=== PATIENT | male | born 1965 | race Caucasian/White ===

== ENCOUNTER → 2020-02-21 | Outpatient (REF) | payer OTHER ==
[2020-02-21 19:32] LABS: APPEARANCE, URINE CLEAR (CLEAR); BACTERIA, URINE AUTO NEGATIVE (NEGATIVE); BILIRUBIN, URINE AUTO NEGATIVE (NEGATIVE); BLOOD, URINE BLOOD 1+ (NEGATIVE); COLOR, URINE YELLOW (YELLOW); GLUCOSE, URINE (UA) AUTO NEGATIVE (NEGATIVE); KETONE, URINE AUTO NEGATIVE (NEGATIVE); LEUKOCYTE ESTERASE, URINE AUTO NEGATIVE (NEGATIVE); NITRITE, URINE AUTO NEGATIVE (NEGATIVE); PROTEIN, URINE AUTO NEGATIVE (NEGATIVE); RBC, URINE AUTO 1 /HPF (0-3); SPECIFIC GRAVITY URINE AUTO 1.018 (1.002-1.035); SQUAMOUS EPITHELIAL CELL UR AU 0 /HPF (0-6); UROBILINOGEN, URINE AUTO 0.2 mg/dL (0.0-2.0); WBC, URINE AUTO 0 /HPF (0-3)
== END ==
LOC: M SMT 17:23
PROVIDERS: ATTEND Nurse Practitioner Family
DX: R31.29 Other microscopic hematuria (principal)

== ENCOUNTER → 2020-03-19 | Outpatient (CLI) | payer OTHER ==
[~2020-03-19] MED LIST: PROHANCE 279.3MG/ML 15ML VIAL As Ordered ONE; PROHANCE 279.3MG/ML 5ML VIAL As Ordered ONE
--- NOTE | 2020-03-19 20:15 | REPVR ---
PROCEDURE INFORMATION: Exam: MR Head Without and With Contrast; Internal Auditory Canals Exam date and time: 03/19/2020 8:52 AM Age: 55 years old Clinical indication: Other: Hearing loss, left side; Additional info: [facility] TECHNIQUE: Imaging protocol: MR of the head without and with intravenous contrast. Exam focused on the internal auditory canals. 3D rendering: MIP and/or 3D reconstructed images were created by the technologist. Contrast material: PROHANCE; Contrast volume: 20 ml; Contrast route: INTRAVENOUS (IV); COMPARISON: No relevant prior studies available. FINDINGS: Brain: There is a small focus of hyperintensity on diffusion involving the central medulla. There is no abnormal signal intensity on the remaining sequences. Artifact is suggested, although a subacute lacunar infarct cannot be excluded. No restricted diffusion within the remaining brain to suggest an acute infarct. No abnormally enhancing intracranial mass is identified. No cerebral edema. No significant cerebral white matter disease. Ventricles: No ventriculomegaly. Sinuses: Minimal mucosal thickening of the left maxillary sinus and scattered ethmoid air cells. A small air-fluid level is identified within the left sphenoid sinus. Mastoid air cells: Mild effusions within the bilateral mastoid air cells. Internal auditory canals: Anterior inferior cerebellar artery loops are identified within the bilateral internal auditory canals. There is no mass effect or enhancing lesion involving the bilateral internal auditory canals or cerebellopontine angle cisterns. Nasopharynx: Nasal septal deviation to the left. Dural sinuses/cerebral veins: Increased signal intensity is identified within the right sigmoid venous sinus, without occlusive thrombosis on postcontrast images. Small ovoid filling defects are identified within the left transverse venous sinus, consistent with arachnoid granulations. Bones/joints: Unremarkable. IMPRESSION: 1. There is a small focus of hyperintensity on diffusion involving the central medulla. Artifact is suggested, although a subacute lacunar infarct cannot be excluded. 2. There is no mass effect or enhancing lesion involving the bilateral internal auditory canals or cerebellopontine angle cisterns. 3. Mild effusions within the bilateral mastoid air cells. 4. Paranasal sinus disease. 5. Additional findings described above. Electronically signed by: Thompson Monsalve On 03/19/2020 20:15:54 PM
== END ==
LOC: M RAD 08:18
PROVIDERS: ATTEND Otolaryngology
DX: H90.3 Sensorineural hearing loss, bilateral (principal)
CPT/HCPCS: 70553; A9576